=== PATIENT | male | born 1985 | race Two or more races ===

== ENCOUNTER 2016-05-15 05:37 | Emergency (ER) | payer SELFPAY ==
[~2016-05-15] VITALS: Ht 175.3 cm; Wt 78.0 kg
[2016-05-15 06:23] VITALS: BP 116/78
[2016-05-15] MEDS: KETOROLAC TROMETH 60MG/2ML VIAL IM ONE (07:01)
[2016-05-15] MEDS: cefTRIAXone SOD 1,000 MG VL IM ONE (07:01)
== END 2016-05-15 07:05 | disposition home or self-care (01) ==
LOC: ER 05:39
DX: L03.211 Cellulitis of face (principal); K02.9 Dental caries, unspecified; F17.210 Nicotine dependence, cigarettes, uncomplicated; F12.10 Cannabis abuse, uncomplicated
CPT/HCPCS: 96372; 99284; J0696; J1885

== ENCOUNTER 2018-01-02 14:03 | Emergency (ER) | payer MEDICAID ==
[~2018-01-02] VITALS: Ht 175.3 cm; Wt 54.4 kg
[2018-01-02 14:18] VITALS: BP 122/86
== END 2018-01-02 14:27 | disposition left against medical advice (07) ==
LOC: ER 14:03
DX: M79.604 Pain in right leg (principal); Z53.21 Procedure and treatment not carried out due to patient leaving prior to being seen by health care provider

== ENCOUNTER 2018-09-27 12:39 | Emergency (ER) | payer MEDICAID ==
[~2018-09-27] VITALS: Ht 175.3 cm; Wt 55.3 kg
[2018-09-27 12:49] VITALS: BP 116/77
== END 2018-09-27 14:04 | disposition left against medical advice (07) ==
LOC: ER 12:39
DX: J34.89 Other specified disorders of nose and nasal sinuses (principal); R51 Headache; Z53.21 Procedure and treatment not carried out due to patient leaving prior to being seen by health care provider
CPT/HCPCS: 70450; 70486

== ENCOUNTER 2018-12-02 11:15 | Emergency (ER) | payer MEDICAID ==
[~2018-12-02] VITALS: Ht 180.3 cm; Wt 57.2 kg
[2018-12-02 11:25] VITALS: BP 102/66
== END 2018-12-02 17:07 | disposition left against medical advice (07) ==
LOC: ER 11:16
DX: R51 Headache (principal); Z53.21 Procedure and treatment not carried out due to patient leaving prior to being seen by health care provider

== ENCOUNTER 2018-12-04 04:07 | Emergency (ER) | payer MEDICAID ==
[~2018-12-04] VITALS: Ht 175.3 cm; Wt 55.8 kg
[2018-12-04 06:05] LABS: Basophils # (auto) 0.1 uL; Eosinophils # (auto) 0.2 uL; Eosinophils % (auto) 2.4 % (0.0-7.0); Hematocrit 36.7 % (41.0-53.0); Hemoglobin 12.9 g/dL (13.5-17.5); Lymphocytes # (auto) 2.4 uL; Lymphocytes % (auto) 29.5 % (10.0-50.0); Mean Corpuscular Hemoglobin 30.4 pg (28.0-32.0); Mean Corpuscular Hgb Conc. 35.2 g/dL (32.0-36.0); Mean Corpuscular Volume 86.4 fL (80.0-100.0); Monocytes # (auto) 0.7 uL; Neutrophils # (auto) 4.8 uL; Neutrophils % (auto) 59.1 % (37.0-80.0); Nucleated Red Blood Cells % 0.1 %; Platelet Count (auto) 289 10^3/uL (140-450); Red Blood Cells 4.25 10^6/uL (4.5-5.90); Red Cell Distribution Width 13.9 % (11.8-14.3); White Blood Cell 8.2 10^3/uL (4.4-10.8)
[2018-12-04 06:11] LABS: Chloride 101 mmol/L (98-107); Potassium 3.3 mmol/L (3.5-5.1); Sodium 137 mmol/L (136-145)
[2018-12-04 06:17] LABS: Albumin 3.5 g/dL (3.4-5.0); Amylase 50 U/L (25-115); Anion Gap 9 (5-15); BUN/Creatinine Ratio 8.5; Blood Alcohol < 3.0 mg/dL (0-5); Blood Urea Nitrogen 7 mg/dL (7-18); Calcium 8.4 mg/dL (8.5-10.1); Carbon Dioxide 27 mmol/L (21-32); GFR African American 140 mL/min; GFR Non-African American 116 mL/min; Glucose 90 mg/dL (74-106); Lipase 38 U/L (73-393)
[2018-12-04 06:27] LABS: Alanine Aminotransferase 22 U/L (16-61); Alkaline Phosphatase 124 U/L (45-117); Aspartate Aminotransferase 21 U/L (15-37); Bilirubin, Total 0.6 mg/dL (0.2-1.0); Total Protein 7.5 g/dL (6.4-8.2)
[2018-12-04 06:32] LABS: Urine WBC None Seen /hpf (0 - 3)
[2018-12-04] MEDS ORDERED: ONDANSETRON HCL 4 MG/2 ML VIAL IV ONE (06:45)
[2018-12-04] MEDS ORDERED: MORPHINE SULFATE 4 MG/ML SYR/VIAL IV ONE (06:45)
[2018-12-04] MEDS ORDERED: SODIUM CHLORIDE 0.9% 1,000 ML IV ONE (06:45)
[2018-12-04] MEDS ORDERED: PROCHLORPERAZINE EDISYLATE 5 MG/ML 2ML VIAL IV ONE (06:45)
[2018-12-04 07:01] LABS: Alcohol, Urine < 3.0 mg/dL (0-5); Amphetamine Screen, Urine POSITIVE (NEGATIVE); Barbiturate Scree,Urine NEGATIVE (NEGATIVE); Benzodiazephine Screen, Urine NEGATIVE (NEGATIVE); Cannabinoid Screen, Urine POSITIVE (NEGATIVE); Cocaine Screen, Urine NEGATIVE (NEGATIVE); Opiate Scree,Urine POSITIVE (NEGATIVE); Phencyclidine Screen, Urine NEGATIVE (NEGATIVE)
[2018-12-04 07:07] LABS: Urine Bacteria NONE SEEN /hpf (None Seen); Urine Blood TRACE /uL (Negative); Urine Specific Gravity 1.028 (1.001-1.035)
[2018-12-04 07:26] VITALS: BP 109/64
== END 2018-12-04 09:05 | disposition home or self-care (01) ==
LOC: ER 04:10
DX: H53.8 Other visual disturbances (principal); G44.209 Tension-type headache, unspecified, not intractable; F11.10 Opioid abuse, uncomplicated; F17.210 Nicotine dependence, cigarettes, uncomplicated
CPT/HCPCS: 36415; 70450; 74176; 80053; 80307; 80320; 81001; 82150; 83690; 83735; 85025; 94761; 96360; 96361; 99284; J7030

== ENCOUNTER 2019-03-06 15:16 | Emergency (ER) | payer MEDICAID ==
[~2019-03-06] VITALS: Ht 175.3 cm; Wt 59.0 kg
[2019-03-06 16:10] LABS: Alanine Aminotransferase 18 U/L (16-61); Albumin 3.2 g/dL (3.4-5.0); Anion Gap 7 (5-15); Aspartate Aminotransferase 12 U/L (15-37); BUN/Creatinine Ratio 7.5; Basophils # (auto) 0.1 uL; Basophils % (auto) 1.3 % (0.0-2.0); Blood Alcohol < 3.0 mg/dL (0-5); Blood Urea Nitrogen 7 mg/dL (7-18); Calcium 8.1 mg/dL (8.5-10.1); Carbon Dioxide 27 mmol/L (21-32); Chloride 104 mmol/L (98-107); Eosinophils # (auto) 0.1 uL; Eosinophils % (auto) 0.9 % (0.0-7.0); GFR African American 120 mL/min; GFR Non-African American 99 mL/min; Glucose 137 mg/dL (74-106); Hematocrit 41.9 % (41.0-53.0); Hemoglobin 14.1 g/dL (13.5-17.5); Lymphocytes # (auto) 1.3 uL; Lymphocytes % (auto) 22.2 % (10.0-50.0); Mean Corpuscular Hemoglobin 30.2 pg (28.0-32.0); Mean Corpuscular Hgb Conc. 33.7 g/dL (32.0-36.0); Mean Corpuscular Volume 89.8 fL (80.0-100.0); Monocytes # (auto) 0.2 uL; Neutrophils # (auto) 4.1 uL; Neutrophils % (auto) 71.6 % (37.0-80.0); Nucleated Red Blood Cells % 0.1 %; Platelet Count (auto) 337 10^3/uL (140-450); Potassium 3.7 mmol/L (3.5-5.1); Red Blood Cells 4.67 10^6/uL (4.5-5.90); Red Cell Distribution Width 13.9 % (11.8-14.3); Salicylate < 1.7 mg/dL (2.8-20.0); Sodium 138 mmol/L (136-145); White Blood Cell 5.7 10^3/uL (4.4-10.8)
[2019-03-06 16:12] LABS: Alkaline Phosphatase 127 U/L (45-117); Bilirubin, Total 0.3 mg/dL (0.2-1.0); Total Protein 7.9 g/dL (6.4-8.2)
[2019-03-06 16:22] LABS: Acetaminophen < 2.0 ug/mL (10-30)
[2019-03-06] MEDS ORDERED: SODIUM CHLORIDE 0.9% 1,000 ML IVB ONE (16:28)
[2019-03-06 17:42] LABS: INR 1.09 (0.9-1.15); Partial Thromboplastin Time 36.6 sec (23.64-32.05)
[2019-03-06 18:00] VITALS: BP 135/81
[2019-03-06 18:44] LABS: Urine Bacteria NONE SEEN /hpf (None Seen); Urine Blood Negative /uL (Negative); Urine Specific Gravity 1.009 (1.001-1.035); Urine WBC 1 /hpf (0 - 3)
[2019-03-06 18:58] LABS: Alcohol, Urine < 3.0 mg/dL (0-5); Amphetamine Screen, Urine POSITIVE (NEGATIVE); Barbiturate Scree,Urine NEGATIVE (NEGATIVE); Benzodiazephine Screen, Urine NEGATIVE (NEGATIVE); Cannabinoid Screen, Urine POSITIVE (NEGATIVE); Cocaine Screen, Urine NEGATIVE (NEGATIVE)
[2019-03-06 19:06] LABS: Opiate Scree,Urine POSITIVE (NEGATIVE); Phencyclidine Screen, Urine NEGATIVE (NEGATIVE)
== END 2019-03-06 22:36 | disposition left against medical advice (07) ==
LOC: EDBD 15:16 → EDUNIT# 15:16 → ER 15:37
DX: T40.601A Poisoning by unspecified narcotics, accidental (unintentional), initial encounter (principal); F15.10 Other stimulant abuse, uncomplicated; F32.9 Major depressive disorder, single episode, unspecified; R51 Headache; F41.9 Anxiety disorder, unspecified; F11.10 Opioid abuse, uncomplicated; F17.210 Nicotine dependence, cigarettes, uncomplicated; Y92.89 Other specified places as the place of occurrence of the external cause
CPT/HCPCS: 36415; 70450; 71045; 80053; 80307; 80320; 80329; 81001; 82962; 83735; 85025; 85610; 85730; 93005; 99284; J7030

== ENCOUNTER 2019-03-10 22:34 | Emergency (ER) | payer MEDICAID | END 2019-03-10 23:10 | disposition left against medical advice (07) | LOC: ER 22:38 | DX: Z53.21 Procedure and treatment not carried out due to patient leaving prior to being seen by health care provider (principal) ==

== ENCOUNTER → 2019-08-15 | Emergency (ER) | payer MEDICAID ==
[~2019-08-15] VITALS: Ht 175.3 cm; Wt 59.0 kg
[2019-08-15 03:00] VITALS: BP 114/78
== END | disposition home or self-care (01) ==
LOC: ER 02:57
DX: M79.632 Pain in left forearm (principal); R22.32 Localized swelling, mass and lump, left upper limb; Z53.21 Procedure and treatment not carried out due to patient leaving prior to being seen by health care provider

== ENCOUNTER 2019-12-30 21:53 | Emergency (ER) | payer MEDICAID ==
[~2019-12-30] VITALS: Ht 175.3 cm; Wt 49.9 kg
[2019-12-30 22:04] VITALS: BP 151/98
== END 2019-12-31 01:31 | disposition left against medical advice (07) ==
LOC: ER 21:55
DX: L02.419 Cutaneous abscess of limb, unspecified (principal); Z53.21 Procedure and treatment not carried out due to patient leaving prior to being seen by health care provider

== ENCOUNTER 2021-08-12 23:39 | Emergency (ER) | payer MEDICAID ==
[~2021-08-12] VITALS: Ht 175.3 cm; Wt 53.1 kg
[2021-08-13 01:00] VITALS: BP 128/10
== END 2021-08-13 01:34 ==
LOC: ER 23:39
DX: F11.20 Opioid dependence, uncomplicated (principal); F17.210 Nicotine dependence, cigarettes, uncomplicated; F15.10 Other stimulant abuse, uncomplicated